=== PATIENT | male | born 1960 | race Caucasian/White ===

== ENCOUNTER → 2018-01-04 | Outpatient (CLI) | payer MEDICARE ==
[~2018-01-04] MED LIST: AMBIEN 10 MG TA10 MG PO; AMLODIPINE BESY10 MG; AMLODIPINE BESY10 MG PO; ANTIBIOTIC IV; CELEBREX; CELEBREX 200 M200 MG PO; CLONIDINE HCL0.2 M2 PO; CLONIDINE PO; CYMBALTA60 MG PO; DILAUDID 2 MG TA2 MG PO; DILAUDID 4 MG TA4 M1 PO; DOXEPIN 10 MG C10 MG; FENTANYL PA25 MCG/HR TP; FINASTERIDE5 MG PO; FLEXERIL PO; FLOMAX PO; FLOMAX0.4 MG PO; GABAPENTIN; HEP-LOCK F100 UNIT/1 IV; IBUPROFEN 800800 M1 PO; IRON325 PO; KEPPRA 500 MG500 M1 PO; LIPITOR 20 MG T20 M1 PO; LISINOPRIL20 MG PO; LOVENOX PO; METHADONE HCL 110 M1; METHADONE HCL 110 M1 PO; MIRTAZAPINE15 M2 PO; MORPHINE PO; MORPHINE SULFAT30 M1 PO; MOVANTIK25 MG PO; MS CONTIN 30 MG30 MG PO; MS CONTIN15 MG PO; NEURONTIN 300300 M1 PO; NEURONTIN600 MG PO; NORCO 5-325 TA1 EACH PO; NORVASC10 MG PO; OPANA ER10 M1 PO; OXYCODONE HCL15 MG PO; PAROXETINE HCL20 MG PO; PAXIL10 MG PO; PERCOCET 10-321 EACH PO; PERCOCET 5-3251 EACH PO; PREDNISONE50 MG PO; PROAIR HFA8.5 GM IH; REMERON SOLTAB45 M1; REMERON15 MG PO; SEROQUEL 50 MG50 MG PO; VOLTAREN GEL 1100 GM TOP; XANAX 0.5 MG0.5 M1 PO; XANAX 0.5 MG0.5 MG PO; ZANAFLEX4 MG; ZANAFLEX4 MG PO; oxycodone PO
--- NOTE | 2018-01-09 07:21 | PAINCON ---
[facility] [address] [place] [address] PAIN MANAGEMENT CONSULTATION Name: CAROL NESBITT [id number] Admission: 01/04/18 Attend Phys: Valeriy Nieves Discharge: Date of : 62 Report #: [id number] THIS REPORT FOR: //name// CC: Gareth Royal HISTORY OF PRESENT ILLNESS: The patient is a 57-year-old gentleman long known to pain clinic, being treated for chronic pain syndrome requiring high risk complex medication management. He is status post both cervical and lumbar decompressive laminectomy with ongoing axial back pain and SI mediated pain. Last visit was on 11/09/2017, we continued the patient on methadone 10 mg t.i.d., hydromorphone 4 mg up to 6 a day for breakthrough pain. The patient was having some pain in the right hand. I referred him to Dr. Emma Kearney for possible surgery in the right hand. He returns to pain clinic today with significant interval health concerns. The patient was seen for prolonged visit, greater than 30 minutes was spent with the patient today. He notes he has had significant swelling and generalized fatigue over the last couple of months. In fact, symptoms have become fairly paramount and has somewhat eclipsed his hand issues and subsequently he did not follow up with Dr. Kearney. He notes having significant swelling in his lower extremities and in fact he has +2 pretibial edema bilaterally. He also has developed a unique scaly erythematous plaque on the lower extremities, the left anterior perry has about a 2 x 3 cm plaque, the right leg has about 1 x 2 cm plaque. Multiple areas of some erythema. States he has significant fatigue and has started sleeping in his office chair. Unfortunately, with this he sleeps with his legs "up" but not anywhere near the level of the heart. I think this may be contributing some to his lower extremity edema. Does have sleep apnea by history, though he states he cannot tolerate the CPAP mask and this is the reason which he sleeps sitting up. He has had a significant workup by his pharmacy general manager physician including lab work panel, which ostensibly would have looked at renal function, no abnormality was found. I would assume that a C-reactive protein and B natriuretic peptide levels would have been drawn, had those been positive they may point to some congestive heart failure. The patient has no specific heart history. Today, the patient notes pain remains problematic with pain impact score being about 35/70. Subjective pain score is 4 on a VAS. PHYSICAL EXAMINATION: Other than the edema and erythema in the lower extremities is relatively unchanged, 6 feet tall, 291-pound gentleman, [place] [address] PAIN MANAGEMENT CONSULTATION Name: CAROL NESBITT Room: [facility] [address] Marcie#: [id number] Admission: 01/04/18 Attend Phys: Valeriy Nieves Discharge: Date of : 62 Report #: [id number] 39.3 kilograms per meter squared, up about 20 pounds from last visit. The patient attributes this mostly to the fluid retention. Blood pressure 148/93, pulse 80, respirations 16. Alert and oriented to person, place and time, judged to be a reasonable historian. Moves with moderate antalgic, diffuse tenderness across the low back. Lower extremity strength is unchanged. The patient has subjective pain in his legs with neurogenic claudication concerns. RECOMMENDATION: Long discussion with the patient today about therapeutic options. I strongly suggest he try sleeping flat in bed, may consider adding a small riser under the headboard, typically 1 or 2 bricks under the headboard side of the bed may cause enough elevation to help with the patient's subjective feeling of "suffocation" and may help reduce some lower extremity edema. Also, just on the off chance that this is related to mast cell release suggests that he try simply ogzb-dwk-dspycel diphenhydramine (Benadryl) 25 mg at bedtime. I did caution the patient about increasing somnolence with this agent. Again, the patient's opiate analgesics may release histamine, but Dilaudid is specifically one of the least impactful agents for histamine release and methadone is fairly nominal as well. We reviewed the fact that opiate medications are being used to provide analgesia adequate to support activities of daily living, not attempting to achieve a specific pain score on the 0-10 Visual Analog Scale. The current opiate medications are providing sufficient analgesia to allow the patient to participate in activities of daily living. The patient is not exhibiting any aberrant behavior suggestive of drug diversion. The patient is not having any adverse reactions to medications. The patient is not suffering from daytime somnolence or mental acuity changes. The patient is managing opiate-induced constipation with appropriate zuee-gll-ujxvedz agents and dietary considerations. The patient was counseled on concern for caution with operating a motor vehicle while using opiate medications. A physical exam was performed and the patient's functional status was evaluated. All patients with back pain were advised against the bed rest greater than 4 days and were advised to return to normal activities. Pain score assessment was noted and the treatment plan was reviewed with the patient. All current medications, both prescribed and OTC were reviewed and reconciled on the electronic medical record. Tobacco screening was accomplished and smoking cessation was advised when indicated. BMI was noted and diet/exercise modification was recommended for all patients following outside normal parameters. I reviewed with the patient today their responsibilities to safeguard prescription medications, reviewed their responsibility to utilize medications only as prescribed by the physician. They are [place] [address] PAIN MANAGEMENT CONSULTATION Name: CAROL NESBITT Virgilio Room: [facility]#: [id number] Admission: 01/04/18 Attend Phys: Valeriy Nieves Discharge: Date of : 62 Report #: [id number] medications only from 1 physician group ( [facility]). They are to use 1 pharmacy and keep the clinic informed if they change pharmacies. Their responsibilities include making followup visits in a timely fashion and to avoid abrupt discontinuation of medication usage. Their responsibilities further include bringing their medications (bottles from the pharmacy with residual pills) to the visit for possible confirmation of pill counts and the patient understands it is their responsibility to submit to random drug screens to ensure both that the medications prescribed are present, and that no other controlled substances are present. All prescriptions provided today were generated electronically. ASSESSMENT: 1. Cervical radiculopathy status post decompressive laminectomy. 2. Axial back pain. 3. SI mediated pain. 4. Complex medication management. 5. Idiopathic lower extremity edema, status post cardiopulmonary workup and electrolyte abnormality work up by his pharmacy general manager physician. RECOMMENDATIONS: As noted above. Follow up with his GP and possible Cardiology if symptoms do not resolve. I will see the patient back in 2 months for reevaluation. Opiate consent to treat contract was reviewed. Narcotic medication unchanged. <ELECTRONICALLY SIGNED> By: Miguel Royal DO 01/09/18 0721 1408 [id number] Royal DO /nt
== END ==
LOC: M.PC 02:49
DX: M54.12 Radiculopathy, cervical region (principal); G89.4 Chronic pain syndrome; R60.0 Localized edema; Z79.899 Other long term (current) drug therapy

== ENCOUNTER → 2018-03-01 | Outpatient (CLI) | payer MEDICARE ==
--- NOTE | 2018-03-06 08:02 | PAINCON ---
[facility] [address] [place] [address] PAIN MANAGEMENT CONSULTATION Name: CAROL NESBITT [facility] [id number] Admission: 03/01/18 Attend Phys: Valeriy Nieves Discharge: Date of : 62 Report #: [id number] THIS REPORT FOR: //name// CC: Gareth Royal DATE OF SERVICE: 03/01/2018 The patient is a very pleasant 57-year-old gentleman typically treated for lumbar radiculopathy status post decompressive laminectomy, status post cervical decompressive laminectomy as well, chronic pain syndrome requiring complex medication management, significant SI mediated pain for the past several years. Last visit 01/04/2018, we continued the patient on baseline medication methadone 10 mg t.i.d. and hydromorphone 4 mg up to 6 a day for breakthrough pain. This is a supratherapeutic load of opiate at 220 mg. We discussed weaning this at length. He was having significant lower extremity edema of an ill-defined etiology at last visit. Returns to pain clinic today. Weight continues to be up. He is at 305 pounds, had a very significant workup with really only C-reactive protein being elevated. He incidentally has significant swelling of the left elbow, like olecranon bursitis clinically apparent here. Notes otherwise current medication is providing sufficient analgesia to participate in activities of daily living. He remains stymied about his ongoing swelling. I suggested we check serum testosterone level. Given his chronic opiate use, I suspect that he has some hypotestosteronism. I will send those results to Dr. Gareth Chiang for management of testosterone supplementation if he is in indeed low on serum testosterone. This may help with some of his weight reduction. PHYSICAL EXAMINATION: Shows 6-foot tall, 302-pound gentleman, BMI is 40.7 kilograms per meter squared. Blood pressure is 158/96, pulse 90, respirations 16. Rises from chair using armrest. Diffuse axial back pain, though gait is generally tandem. Significant ballottable edema in the left olecranon bursa. We reviewed the fact that opiate medications are being used to provide analgesia adequate to support activities of daily living, not attempting to achieve a specific pain score on the 0-10 Visual Analog Scale. The current opiate medications are providing sufficient analgesia to allow the patient to participate in activities of daily living. The patient is not exhibiting any aberrant behavior suggestive of drug diversion. The patient is not having any adverse reactions to medications. The patient is not suffering from daytime somnolence or mental acuity changes. The patient is managing opiate-induced constipation with appropriate myhy-cht-dohzhqa agents and dietary considerations. The patient was counseled on concern for caution with operating a motor vehicle while using opiate medications. A physical exam was performed and the patient's functional status was evaluated. All patients with back pain were advised against the bed rest greater than [address] [place] [address] PAIN MANAGEMENT CONSULTATION Name: CAROL NESBITT [facility] [id number] Admission: 03/01/18 Attend Phys: Valeriy Nieves Discharge: Date of : 62 Report #: [id number] days and were advised to return to normal activities. Pain score assessment was noted and the treatment plan was reviewed with the patient. All current medications, both prescribed and OTC were reviewed and reconciled on the electronic medical record. Tobacco screening was accomplished and smoking cessation was advised when indicated. BMI was noted and diet/exercise modification was recommended for all patients following outside normal parameters. I reviewed with the patient today their responsibilities to safeguard prescription medications, reviewed their responsibility to utilize medications only as prescribed by the physician. They are to seek and receive pain medications only from 1 physician group ( [facility]). They are to use 1 pharmacy and keep the clinic informed if they change pharmacies. Their responsibilities include making followup visits in a timely fashion and to avoid abrupt discontinuation of medication usage. Their responsibilities further include bringing their medications (bottles from the pharmacy with residual pills) to the visit for possible confirmation of pill counts and the patient understands it is their responsibility to submit to random drug screens to ensure both that the medications prescribed are present, and that no other controlled substances are present. All prescriptions provided today were generated electronically. ASSESSMENT: Chronic axial back pain in a gentleman status post both cervical and lumbar decompressive laminectomies, sacroiliac mediated pain requiring complex medication management. RECOMMENDATIONS: We will renew current medication unchanged with a caveat for the patient to try and wean p.r.n. hydromorphone down to 2-3 a day as able. I have enabled him to take up to 6 a day. We will do a pill count in 2 months in followup. ASSESSMENT #2: Left olecranon bursitis. PROCEDURE: Left elbow olecranon bursa drain today. PROCEDURE NOTE: After written informed consent was obtained, area overlying the left elbow was cleansed with ChloraPrep. Skin wheal with Xylocaine was raised. A 20-gauge Angiocath was inserted and 20 mL of a serosanguineous liquid was withdrawn. I injected 2 mL of 0.5% preservative-free bupivacaine plus 20 mg of triamcinolone. Needle was removed, area was cleansed, Band-Aids applied. Told to ice the area today. Follow up in 2 months and present to the ER if he has any signs or symptoms of infection in the left elbow. <ELECTRONICALLY SIGNED> By: Miguel Royal DO 03/06/18 0802 1539 1947[facility] Hospitalmarissa Royal DO /nt
== END | disposition home or self-care (01) ==
LOC: M.PC 00:30
DX: M70.22 Olecranon bursitis, left elbow (principal); G89.4 Chronic pain syndrome; M54.9 Dorsalgia, unspecified; M53.3 Sacrococcygeal disorders, not elsewhere classified; Z98.890 Other specified postprocedural states; Z79.891 Long term (current) use of opiate analgesic; Z79.899 Other long term (current) drug therapy

== ENCOUNTER → 2018-04-26 | Outpatient (CLI) | payer MEDICARE ==
--- NOTE | 2018-04-27 07:13 | PAINCON ---
[address] [address] PAIN MANAGEMENT CONSULTATION Name: CAROL NESBITT [facility] [id number] Admission: 04/26/18 Attend Phys: Valeriy Nieves Discharge: Date of : 62 Report #: [id number] THIS REPORT FOR: //name// CC: Gareth Royal HISTORY OF PRESENT ILLNESS: The patient is a 57-year-old gentleman, typically treated for symptomatic lumbar radiculopathy, status post decompressive laminectomy. He has had a prior cervical decompressive laminectomy and fusion, SI joint pain, requiring complex medication management. Last seen in the pain clinic, 03/01/2018. Continued on baseline narcotic including methadone 10 mg t.i.d. and hydromorphone for breakthrough pain, 4 mg one tablet up to 6 a day. This does represent a supratherapeutic load of opiate, roughly equating to about 240 mg of morphine daily. He came to our clinic in 01/2016, chronic axial back and lumbar radicular pain. At that time, he was taking about 140 mg morphine equivalent; dose has been titrated over time subsequent to multiple surgeries. Last visit, I did check a serum testosterone level. He has been on opiates for quite some time, and he was having trouble with weight loss. He is hovering around 300 pounds; today's weight is 299.4. Serum testosterone level was low, 239 (normal is 264-916). I did refer this lab value to Dr. Chiang for consideration for testosterone supplementation. The patient notes prior caudal injections have helped with lumbar radicular pain, but steroid is associated with diaphoresis at night. Last visit, I did aspirate approximately 20 mL of blood-tinged serosanguineous fluid out of the left elbow. Unfortunately, this recurred within 24 hours. He returns to the pain clinic today noting pain is in the left low back, radiating to the knee. Chronic swelling in the left elbow, though it is nontender. He has episodic left sciatic-type pain. We reviewed the fact that opiate medications are being used to provide analgesia adequate to support activities of daily living, not attempting to achieve a specific pain score on the 0-10 Visual Analog Scale. The current opiate medications are providing sufficient analgesia to allow the patient to participate in activities of daily living. The patient is not exhibiting any aberrant behavior suggestive of drug diversion. The patient is not having any adverse reactions to medications. The patient is not suffering from daytime somnolence or mental acuity changes. The patient is managing opiate-induced constipation with appropriate vyjr-sqc-njnylli agents and dietary considerations. The patient was counseled on concern for caution with operating a motor vehicle while using opiate medications. A physical exam was performed and the patient's functional status was evaluated. All patients with back pain were advised against the bed rest greater than [address] [place] [address] PAIN MANAGEMENT CONSULTATION Name: CAROL NESBITT [facility] [id number] Admission: 04/26/18 Attend Phys: Valeriy Nieves Discharge: Date of : 62 Report #: [id number] days and were advised to return to normal activities. Pain score assessment was noted and the treatment plan was reviewed with the patient. All current medications, both prescribed and OTC were reviewed and reconciled on the electronic medical record. Tobacco screening was accomplished and smoking cessation was advised when indicated. BMI was noted and diet/exercise modification was recommended for all patients following outside normal parameters. I reviewed with the patient today their responsibilities to safeguard prescription medications, reviewed their responsibility to utilize medications only as prescribed by the physician. They are to seek and receive pain medications only from 1 physician group ( [facility]). They are to use 1 pharmacy and keep the clinic informed if they change pharmacies. Their responsibilities include making followup visits in a timely fashion and to avoid abrupt discontinuation of medication usage. Their responsibilities further include bringing their medications (bottles from the pharmacy with residual pills) to the visit for possible confirmation of pill counts and the patient understands it is their responsibility to submit to random drug screens to ensure both that the medications prescribed are present, and that no other controlled substances are present. All prescriptions provided today were generated electronically. PHYSICAL EXAMINATION: VITAL SIGNS: Shows 6 feet tall, 299-pound gentleman, BMI is elevated at 40.7 kilograms per meter squared. Blood pressure 145/94, pulse 85 and respirations 16. Subjective pain score is 8 on a VAS. GENERAL: Alert and oriented to person, place and time, judged to be a reasonable historian. MUSCULOSKELETAL: Upper extremity strength is preserved. Rises from the chair using armrest. Gait is generally tandem, but he has episodic pain in the left leg, which causes him to stop in his tracks. Lower extremity strength is generally preserved. Lumbar range of motion is self-limited. Diffuse tenderness across the low back. No discrete triggers are noted. He does have some ballottable edema in the left olecranon area. ASSESSMENT: Symptomatic lumbar radiculopathy, status post decompressive laminectomy; chronic axial back pain; history of sacroiliac-mediated pain and history of cervical decompressive laminectomy, requiring complex medication management. Does have some ballottable fluid and swelling in the left olecranon bursa. RECOMMENDATIONS: I had a long discussion with the patient today about therapeutic options. He was seen in the pain clinic for approximately 30 minutes today; greater than 50% of the time was spent counseling the patient. I informed the patient that I will be leaving the clinic practice[place] [address] PAIN MANAGEMENT CONSULTATION Name: CAROL NESBITT Room: [facility]#: [id number] Admission: 04/26/18 Attend Phys: Valeriy Nieves Discharge: Date of : 62 Report #: [id number] supratherapeutic load of opiate, which makes his management concerning. I will ask my partner, Dr. Marcell Bernardo, to see if he can continue the patient's care, though we will try and slowly wean his opiate analgesic. Today, we did elect to decrease hydromorphone 4 mg from 6 a day to 5 a day, limit decreased from 181 to 150. This will decrease the opiate load by about 15 mg, down to 215 mEq a day. Continue functional status as able. The patient is very desirous of avoiding any further surgery; he had multiple lumbar and cervical surgeries. I talked about referring him to Orthopedics regarding the olecranon bursa, though given that it is not tender, the patient is loathe to move forward with any further surgeries. I did emphasize that the patient should monitor the elbow swelling as a collection of heme is a very good culture medium and if ANY signs of infection, he should seek medical care. Presently, we would like to simply continue current medication with the caveat that we will try and decrease hydromorphone over time. We will refer to Dr. Chiang regarding testosterone supplementation. Today, I did take the liberty of writing for 3 months of the patient's current opiate analgesic, with the lowered hydromorphone dose. We will have him follow up in [address] Marcell Bernardo. We will likely continue hydromorphone wean as able. Discharged in good and stable condition after prolonged visit. Greater than 30 minutes were spent reviewing therapeutic options, discussing hypotestosteronism, olecranon bursa swelling, surgical risks and benefits and chronic pain management. <ELECTRONICALLY SIGNED> By: Miguel Royal DO 04/27/18 0713 1508 [id number] Royal DO /nt
== END ==
LOC: M.PC 04:02
DX: M54.16 Radiculopathy, lumbar region (principal); M54.5 Low back pain; Z79.899 Other long term (current) drug therapy

== ENCOUNTER 2018-05-03 02:34 | Emergency (ER) | payer MEDICARE ==
[~2018-05-03] VITALS: Ht 182.9 cm; Wt 133.8 kg
[~2018-05-03 02:34] MED LIST changes: -AMLODIPINE BESY10 MG; -ANTIBIOTIC IV; -CLONIDINE HCL0.2 M2 PO; -DOXEPIN 10 MG C10 MG; -FLOMAX0.4 MG PO; -HEP-LOCK F100 UNIT/1 IV; -KEPPRA 500 MG500 M1 PO; -LIPITOR 20 MG T20 M1 PO; -LISINOPRIL20 MG PO; -METHADONE HCL 110 M1; -REMERON SOLTAB45 M1; -SEROQUEL 50 MG50 MG PO; -ZANAFLEX4 MG
[2018-05-03] MEDS ORDERED: PAXIL10 MG PO ×2 (02:59→03:05)
[2018-05-03] MEDS ORDERED: REMERON SOLTAB45 M1 (03:00)
[2018-05-03] MEDS ORDERED: AMLODIPINE BESY10 MG (03:00)
[2018-05-03] MEDS ORDERED: DOXEPIN 10 MG C10 MG (03:01)
[2018-05-03] MEDS ORDERED: ZANAFLEX4 MG (03:01)
[2018-05-03] MEDS ORDERED: DILAUDID 2 MG TA2 MG PO (03:02)
[2018-05-03] MEDS ORDERED: METHADONE HCL 110 M1 (03:03)
[2018-05-03 03:04] LABS: ABSOLUTE BASOPHILS 0.1 thou/uL (0.0-0.2); ABSOLUTE EOSINOPHILS 0.2 thou/uL (0.0-0.7); ABSOLUTE LYMPHOCYTES 2.1 thou/uL (0.8-5.3); ABSOLUTE MONOCYTES 0.6 thou/uL (0.0-1.2); ABSOLUTE NEUTROPHILS 3.7 thou/uL (1.6-8.1); BASOPHILS 0.8 %; EOSINOPHILS 3.6 %; HEMOGLOBIN 14.6 gm/dL (14.0-18.0); LYMPHOCYTES 31.7 %; MCH 30.5 pg (26.0-34.0); MCHC 34.9 g/dL (28.0-37.0); MCV 87.4 fL (80.0-100.0); MONOCYTES 8.7 %; MPV 7.9 fl. (7.2-11.1); NUCLEATED RBCS 0 /100WBC; PLATELET COUNT* 217 thou/uL (150-400); POLYS 55.2 %; RDW-CV 13.5 % (10.5-14.5); WBC 6.7 thou/uL (4.0-11.0)
[2018-05-03 03:05] LABS: POC ANION GAP 18 mmol/L (10-20); POC BUN < 3 mg/dL (8-26); POC CA IONIZED 4.9 mg/dL (4.5-5.3); POC CHLORIDE 102 mmol/L (98-109); POC CREATININE 0.9 mg/dL (0.6-1.3); POC GLUCOSE 129 mg/dL (70-105); POC HEMOGLOBIN 13.9 g/dL (12.0-17.0); POC SODIUM 142 mmol/L (138-146); POC TCO2 27 mmol/L (24-29)
[2018-05-03 03:14] LABS: CALCIUM 8.2 mg/dL (8.5-10.1)
[2018-05-03 03:15] LABS: PROTIME 9.5 Seconds (9.20-11.50)
[2018-05-03 03:19] LABS: ALBUMIN 3.3 g/dL (3.4-5.0); TOTAL BILIRUBIN 0.4 mg/dL (<0.1-1.0); TOTAL PROTEIN 6.5 g/dL (6.4-8.2)
[2018-05-03 04:25] VITALS: BP 158/84
--- NOTE | 2018-05-03 13:10 | EKG ---
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
[2018-07-18] MEDS ORDERED: METHADONE HCL 110 M1 PO ×2 (08:09)
[2018-07-18] MEDS ORDERED: DILAUDID 4 MG TA4 M1 PO (08:09)
[2018-07-18] MEDS ORDERED: ZANAFLEX4 MG PO (08:09)
[2018-07-18] MEDS ORDERED: LIPITOR 20 MG T20 M1 PO (08:32)
[2018-07-18] MEDS ORDERED: KEPPRA 500 MG500 M1 PO (08:33)
[2018-07-18] MEDS ORDERED: CLONIDINE HCL0.2 M2 PO (08:33)
[2018-07-18] MEDS ORDERED: LISINOPRIL20 MG PO (08:34)
[2018-07-18] MEDS ORDERED: FLOMAX0.4 MG PO (08:36)
[2018-07-18] MEDS ORDERED: SEROQUEL 50 MG50 MG PO (08:37)
[2018-10-10] MEDS ORDERED: ZANAFLEX4 MG PO (08:46)
[2018-10-10] MEDS ORDERED: DILAUDID 4 MG TA4 M1 PO (08:46)
[2018-10-10] MEDS ORDERED: METHADONE HCL 110 M1 PO ×2 (08:46)
[2018-10-12] MEDS ORDERED: ANTIBIOTIC IV (16:04)
[2018-10-12] MEDS ORDERED: HEP-LOCK F100 UNIT/1 IV (16:05)
== END 2018-05-03 04:59 | disposition short-term general hospital (02) ==
LOC: M.ERS 02:34
PROVIDERS: Emergency Medicine
DX: I61.9 Nontraumatic intracerebral hemorrhage, unspecified (principal); I10 Essential (primary) hypertension; F17.210 Nicotine dependence, cigarettes, uncomplicated; Z96.651 Presence of right artificial knee joint

== ENCOUNTER → 2018-06-01 | Outpatient (CLI) | payer MEDICARE ==
[~2018-06-01] MED LIST changes: +AMLODIPINE BESY10 MG; +ANTIBIOTIC IV; +CLONIDINE HCL0.2 M2 PO; +DOXEPIN 10 MG C10 MG; +FLOMAX0.4 MG PO; +HEP-LOCK F100 UNIT/1 IV; +KEPPRA 500 MG500 M1 PO; +LIPITOR 20 MG T20 M1 PO; +LISINOPRIL20 MG PO; +METHADONE HCL 110 M1; +REMERON SOLTAB45 M1; +SEROQUEL 50 MG50 MG PO; +ZANAFLEX4 MG
== END ==
LOC: M.RAD 12:11
DX: I10 Essential (primary) hypertension (principal); R06.02 Shortness of breath

== ENCOUNTER → 2018-07-18 | Outpatient (CLI) | payer MEDICARE ==
--- NOTE | 2018-07-26 16:41 | PAINCON ---
[address] [address] PAIN MANAGEMENT CONSULTATION Name: DELICIACAROL [id number] Admission: 07/18/18 Attend Phys: Imelda Bernardo MD Discharge: Date of : 62 Report #: [id number] THIS REPORT FOR: //name// CC: Gareth Bernardo DATE OF SERVICE: 07/18/2018 FOLLOWUP HISTORY: The patient is a 57-year-old gentleman who has been followed in the pain clinic because of chronic pain with history of lumbar fusions as well as cervical problems. He has been followed by Dr. Royal. This is my first time meeting with the gentleman. He returns today indicating that his pain continues to be helped with his current medications of methadone, hydromorphone and they continue to add benefit. He unfortunately had a hemorrhagic bleed on the right side of his brain in April. Since that time, he has noted some problems with short-term memory. He is returning to baseline. Still has some short term memory loss. His fine motor skills continue to improve. His is with him and states that things are going reasonably well from a motor skills vantage point. He rates his pain as a 3-4. He continues with his rehabilitation regarding the stroke. His states that she monitors his opioid use. Overall, things are going reasonably well and the patient is scheduled in the near future to have the cranial flap/bone replaced in the near future. He notes that his pain is exacerbated with activity, walking, sitting, standing, going upstairs, going from a standing to a sitting as well as a bending position. He stopped smoking cigarettes on 05/03/2018. Noticed that his presentation was that of feeling as though a helicopter was overhead. Then noted some severe pain. He was taken to the hospital and diagnosed with a stroke. He underwent craniotomy procedure. Things are going reasonably well at this juncture. ALLERGIES: No known drug allergies. MEDICATIONS: Amlodipine 10 mg, Lipitor 20 mg, clonidine 0.2 mg, doxepin 10 mg, Dilaudid 4 mg q.4 hours, Keppra 500 mg b.i.d., lisinopril 20 mg, methadone 10 mg, Remeron 45 mg, Paxil 10 mg, Seroquel 50 mg, Flomax 0.4 mg, tizanidine 4 mg 1-2 p.r.n. spasm. PAST MEDICAL HISTORY: Recent hemorrhagic stroke. PAST SURGICAL HISTORY: In 2007, bilateral spinal fusion. In 2009, knee replacement, laminectomy. SOCIAL HISTORY: He is retired on social security benefits and has been for a number of years, has a 14-lsep-pqud [place] [address] PAIN MANAGEMENT CONSULTATION Name: CAROL NESBITT Virgilio Room: [facility]#: [id number] Admission: 07/18/18 Attend Phys: Imelda Bernardo MD Discharge: Date of : 62 Report #: [id number] REVIEW OF SYSTEMS: Questionnaire in the chart indicates, fever, night sweats, fatigue, headaches, memory loss, confusion, nervousness and insomnia. LABORATORY DATA: No new laboratory values are available at the time of our interview. PAIN CLINIC ASSESSMENT: 1. Osteoarthritis. The patient has some right knee arthritic changes as well as some low back changes. 2. Height 6 feet 0 inches, weight 282 pounds, BMI is 38. 3. Vital Signs: Blood pressure 148/75, respiratory rate 16, room air saturation 95%, heart rate 91, temperature 98.3. 4. Pain intensity 3-/10. 5. Fall risk. The patient has not fallen in the last 3 months. 6. Blood thinner. The patient is not on a blood thinning medication. 7. Hypertension. The patient is being treated for hypertension. 8. Opioid therapy greater than 6 weeks. The patient gets his medications from one source, the pain clinic. 9. Risk assessment tool. 10. Functional assessment tool. 11. Recreational drug use. The patient denies use of recreational drugs. 12. Tobacco: The patient stopped smoking in 05/03/2018, has a 70-ieew-bmjf history. 13. Alcohol: Denies use of alcoholic beverages. PHYSICAL EXAMINATION: GENERAL: The patient is a well-developed, well-nourished white male. Appears as stated age. He is alert and oriented x 3. HEENT: Right side of his skull has been removed secondary to hemorrhagic stroke. Eyes are equal, round, and reactive. The patient states there is a difference in visual acuity in the left thigh. States that things appear that they are quite a distance away that is improving. Hearing within normal limits. Mucous membranes are moist. NECK: Without adenopathy or JVD. LUNGS: Clear to auscultation without rales or rhonchi. ABDOMEN: Nontender, slightly protuberant. The patient without significant scoliosis, kyphosis or lordosis. Has low back pain with radiation down in the L5 distribution. The patient has had lumbar laminectomy fusions. IMPRESSION: 1. Status post recent hemorrhagic stroke with reasonably good resolution at this juncture. 2. Asymptomatic lumbar radiculopathy, status post decompression, laminectomy in 2007 and 1989. 3. Sacroiliac joint dysfunction. 4. Chronic pain syndrome. [facility] [address] [place] [address] PAIN MANAGEMENT CONSULTATION Name: DELICIACAROL Room: [facility]#: [id number] Admission: 07/18/18 Attend Phys: Imelda Bernardo MD Discharge: Date of : 62 Report #: [id number] 5. Hypertension. 6. Chronic insomnia. 7. Chronic anxiety/depression, status post knee arthroplasty in 2009, bilateral spinal fusion, 2007. RECOMMENDATIONS: We discussed treatment options with the patient and his . Things are going reasonably well. He feels quite fortunate that things have turned down as well as they given that he had the hemorrhagic bleed. He is scheduled in the next week or so to go and have the cranium replaced. His states that he takes care of his medications. He is doing relatively well and he would like to continue with current medical regimen. They will follow up in the near future. We would like to thank you for letting us participate in his care. We hope to stay continue to improve. <ELECTRONICALLY SIGNED> By: Imelda Bernardo MD 07/26/18 1641 [id number]. Marcell Bernardo MD /PMT
== END ==
LOC: M.PC 04:43
DX: M54.16 Radiculopathy, lumbar region (principal); I10 Essential (primary) hypertension; M53.3 Sacrococcygeal disorders, not elsewhere classified; G89.4 Chronic pain syndrome; F51.04 Psychophysiologic insomnia; F41.9 Anxiety disorder, unspecified; F32.9 Major depressive disorder, single episode, unspecified

== ENCOUNTER → 2018-10-10 | Outpatient (CLI) | payer MEDICARE ==
--- NOTE | 2018-10-11 15:35 | PAINCON ---
[address] [address] PAIN MANAGEMENT CONSULTATION Name: CAROL NESBITT Room: [facility]#: [id number] Admission: 10/10/18 Attend Phys: Imelda Bernardo MD Discharge: Date of : 62 Report #: [id number] THIS REPORT FOR: //name// CC: Gareth Bernardo DATE OF SERVICE: 10/10/2018 FOLLOWUP HISTORY: The patient is a 57-year-old gentleman, who has been followed in the pain clinic. As you recall, he has a history of lumbar fusions as well as cervical problems. The patient has been followed in the pain clinic and receives medications. He finds that the methadone and hydromorphone continue to be beneficial. As you recall, he has had a hemorrhagic bleed on the right side of his brain in 04/2018. Since that time, he has had some problem with short-term memory. He is beginning and continues to return to baseline. He was hoping for surgery to replace the portion of the skull, which was removed. At this juncture, he has had some problems with an infection. This will prolong the time before they were able to continue and close the cranial flap and replaced the bone. He overall is doing reasonably well. He stopped smoking cigarettes. He continues to have pain, which is helped by use of his current medical regimen. The patient does have a PICC line in place for antibiotics. He will have a synthetic skull replacement in 11/2018. He does continue to feel somewhat depressed because of this turn of events. CURRENT MEDICATIONS: The patient is on amlodipine 10 mg, Lipitor 20 mg, clonidine 0.2 mg, doxepin 10 mg, Dilaudid 4 mg q.4 hours, Keppra 500 mg b.i.d., lisinopril 20 mg, methadone 10 mg, Remeron 45 mg, Paxil 10 mg, Seroquel 50 mg, Flomax 0.4 mg, and tizanidine 4 mg 1-2 p.r.n. spasm. ALLERGIES: No known drug allergies. PAIN CLINIC ASSESSMENT AND PQRS: 1. Osteoarthritis. The patient has some right knee arthritic changes as well as some low back changes. The patient is not being treated for rheumatoid arthritis. 2. Pain intensity is 5/10. 3. Fall history: The patient has not fallen in the last 3 months. 4. Blood thinner. The patient is not on a blood thinning medication. 5. Hypertension. The patient is not being treated for hypertension. 6. Opiate therapy greater than 6 weeks. The patient has received medication from one source, the pain clinic. 7. Risk assessment tool, low for opioid use. 8. Functional assessment tool. 9. Recreational drug use. The patient denies use of recreational drugs. 10. Tobacco: The patient stopped smoking in 04/2018, had a 66-pnap-qfmv [place] [address] PAIN MANAGEMENT CONSULTATION Name: CAROL NESBITT Room: [facility]#: [id number] Admission: 10/10/18 Attend Phys: Imelda Bernardo MD Discharge: Date of : 62 Report #: [id number] 11. Alcohol: The patient denies use of alcoholic beverages. PHYSICAL EXAMINATION: GENERAL: The patient is a well-developed, well-nourished white male. He appears his stated age. He is alert and oriented x 3. Height is 6 feet 0 inches, weight is 274 pounds, and BMI is 37.4. VITAL SIGNS: Blood pressure is 133/71, heart rate is 81, respiratory rate is 16, room air saturation is 97%, and temperature is 97.9. HEENT: The right side of his skull has been removed secondary to hemorrhagic stroke. Eyes are equal, reactive, and round. The patient states that there is some difference in his visual acuity on the left side. He feels that the vision continues to improve. Hearing is within normal limits. Mucous membranes are moist. NECK: Without adenopathy or JVD. LUNGS: Clear to auscultation without rhonchi or rales. ABDOMEN: Nontender, slightly protuberant. MUSCULOSKELETAL: The patient without scoliosis, kyphosis, or lordosis. He has low back pain that radiates down into the L5 distribution. He has had lumbar laminectomy and fusions. IMPRESSION: 1. Status post hemorrhagic stroke with reasonably good resolution at this juncture. The patient now with Staphylococcus infection on the right side of his head. 2. Asymmetric lumbar radiculopathy, status post decompressive laminectomy in 2007 and 1989. 3. Sacroiliac joint dysfunction. 4. Chronic pain. 5. Hypertension. 6. Chronic insomnia. 7. Chronic anxiety/depression, status post knee arthroplasty in 2009, bilateral spinal fusion in 2007. RECOMMENDATIONS: We have discussed treatment options with the patient. At this juncture, we will continue with his medications. He finds that these medications continue to be helpful. We will continue with his methadone 10 mg 1 p.o. 2-3 tablets daily, Dilaudid 4 mg q.4-6 hours p.r.n., approximately 5 tablets per day; tizanidine 4 mg 1-2 tablets t.i.d. p.r.n. h.s., and Tylenol p.r.n. A script for these medications have been written. The patient will follow up in the future as needed. We would like to thank you for letting us to participate in [place] [address] PAIN MANAGEMENT CONSULTATION Name: DELICIACAROL Room: [facility]#: [id number] Admission: 10/10/18 Attend Phys: Imelda Bernardo MD Discharge: Date of : 62 Report #: [id number] he continues to improve. Hopefully, his infection will subside and he can move quickly to surgical placement and closure of his craniotomy. <ELECTRONICALLY SIGNED> By: Imelda Bernardo MD 10/11/18 1535 [id number]. Marcell Bernardo MD /BENJIE
== END ==
LOC: M.PC 04:35
DX: M54.16 Radiculopathy, lumbar region (principal); M53.3 Sacrococcygeal disorders, not elsewhere classified; I10 Essential (primary) hypertension; G89.29 Other chronic pain; F51.04 Psychophysiologic insomnia; M96.1 Postlaminectomy syndrome, not elsewhere classified; I61.9 Nontraumatic intracerebral hemorrhage, unspecified; B95.8 Unspecified staphylococcus as the cause of diseases classified elsewhere; F32.9 Major depressive disorder, single episode, unspecified; F41.9 Anxiety disorder, unspecified

== ENCOUNTER → 2019-01-02 | Outpatient (CLI) | payer MEDICARE ==
--- NOTE | ~2019-01-02 | PAINCON ---
[address] [address] PAIN MANAGEMENT CONSULTATION Name: CAROL NESBITT Room: [facility]#: [id number] Admission: 01/02/19 Attend Phys: Imelda Bernardo MD Discharge: Date of : 62 Report #: [id number] THIS REPORT FOR: //name// CC: Gareth Bernardo DATE OF SERVICE: 01/02/2019 FOLLOWUP HISTORY: The patient is a 57-year-old gentleman who has been followed in the Pain Clinic. As you know, he has a history of lumbar fusions. He also has some cervical problems. He finds that his medications continue to be helpful. He has returned today for renewal of the medications. He had a hemorrhagic bleed in 04/2018. As a result, a surgical intervention was required. The right side of the skull was removed. He recently had a prosthetic portion of the skull replaced. This was about 9 days ago. He feels that things are improving. He rates his pain as a 4/10. He notes that he notes increased pain and discomfort if he sits for too long. He does feel depressed. He has resumed chewing and smoking tobacco. He has a 38-vebv-zsio history. His has encouraged him to refrain from this. Overall, he feels that things have gone reasonably well since the replacement of the cranial flap. He has returned today for renewal of his medications. CURRENT MEDICATIONS: Amlodipine 10 mg, Lipitor 20 mg, clonidine 0.2 mg, doxepin 10 mg, Dilaudid 4 mg q. 4 hours, Keppra 500 mg b.i.d., lisinopril 20 mg, methadone 10 mg, Remeron 45 mg, Paxil 10 mg, Seroquel 50 mg, Flomax 0.4 mg, tizanidine 4 mg one to two p.r.n. spasm. ALLERGIES: No known drug allergies. PAIN CLINIC ASSESSMENT/PQRS: 1. Osteoarthritis. The patient has some right knee arthritic changes as well as some low back pains. He is not being treated for rheumatoid arthritis. 2. Height 6 feet, weight 264 pounds, BMI is 35.9. 3. Vital signs: Blood pressure 142/72, heart rate 94, respiratory rate 16, room air saturation 96%, temperature 98.2. 4. Pain intensity: 4/10. 5. Fall risk: The patient has not fallen in the last 3 months. 6. Blood thinner: The patient is not on a blood thinning medication. 7. Hypertension: The patient is being treated for hypertension. 8. Opioids greater than 6 weeks: The patient is receiving his medication from [facility], [facility] Clinic. 9. Risk assessment tool: Low for opioid use. 10. Functional assessment tool. 11. Recreational drug use: The patient denies use of recreational drug use. 12. Tobacco: The patient is chewing tobacco and has resumed smoking less than a pack of cigarettes per day. He has a 24-mqpx-igew history[place] [address] PAIN MANAGEMENT CONSULTATION Name: CAROL NESBITT Room: [facility]#: [id number] Admission: 01/02/19 Attend Phys: Imelda Bernardo MD Discharge: Date of : 62 Report #: [id number] the patient the benefits of smoking cessation. I explained to him that each time he smokes cigarettes, this decreases his healing capacity and prolongs his healing. The patient is aware. 13. Alcohol: The patient denies use of alcoholic use. PHYSICAL EXAMINATION: GENERAL: The patient is a well-developed, well-nourished white male. He appears his stated age. He is alert and oriented x 3. His affect is appropriate. Speech is fluent. HEENT: Normocephalic. The patient has a bone flap placed on the right side with stitching and sutures in the right parietal and skull area. The patient has some visual loss in the left eye in the lateral visual area. Hearing is within normal limits. Mucous membranes are moist. NECK: Without adenopathy or JVD. LUNGS: Clear to auscultation. ABDOMEN: Nontender. Protuberant. MUSCULOSKELETAL: Without scoliosis, kyphosis, or lordosis. The patient does walk with a slightly antalgic gait. He has a history of lumbar laminectomies and fusion. ASSESSMENT: 1. Status post cranial flap replacement about a week ago. 2. Asymptomatic lumbar radiculopathy status post decompression laminectomy in 2007 and 1998. 3. Sacroiliac joint dysfunction. 4. Chronic pain. 5. Hypertension. 6. Chronic insomnia. 7. Chronic anxiety/depression. 8. Status post knee arthroscopy in 2009, bilateral spinal fusion in 2007. RECOMMENDATIONS: We discussed treatment options with the patient. At this juncture, we will continue with his current medications. We have discussed the benefits and risks of opioid use. The patient feels that his medications are helpful. I explained to him that cessation of smoking would be quite beneficial at this juncture. His is somewhat disenchanted with his desire and use of tobacco at this juncture. A script for his medications of hydromorphone 1 q. 6 hours 150 tablets has been written, methadone 10 mg one p.o. t.i.d. has been provided as well. He will call us if he has any concerns. We would like to thank you for letting us participate in his care. We hope he continues to improve. By: [id number]. Marcell Bernardo MD /nt
== END ==
LOC: M.PC 08:10
DX: I10 Essential (primary) hypertension (principal); G89.29 Other chronic pain; F32.9 Major depressive disorder, single episode, unspecified; F41.9 Anxiety disorder, unspecified; M43.20 Fusion of spine, site unspecified; M54.16 Radiculopathy, lumbar region; M95.2 Other acquired deformity of head; M53.3 Sacrococcygeal disorders, not elsewhere classified

== ENCOUNTER → 2019-03-27 | Outpatient (CLI) | payer MEDICARE ==
--- NOTE | ~2019-03-27 | PAINCON ---
[address] [address] PAIN MANAGEMENT CONSULTATION Name: DELICIACAROL Room: [facility]#: [id number] Admission: 03/27/19 Attend Phys: Imelda Bernardo MD Discharge: Date of : 62 Report #: [id number] THIS REPORT FOR: //name// CC: Gareth Bernardo DATE OF SERVICE: 03/27/2019 CHIEF COMPLAINT: Here for medications. HISTORY: The patient is a 58-year-old gentleman who has been followed in the pain clinic. As you recall, he suffered a stroke. For some period of time, he did have an unprotected cranium. He has had a placement and surgery to close his cranium. Overall, things are going reasonably well. 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 This has been problematic since the stroke. Also, continues to know some pain and discomfort. 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 States that he must have pulled the starter about 20-30 times. That caused some worsening of his pain and discomfort. He is no longer taking tizanidine medication. He feels that the methadone and hydrocodone continue to be helpful. He would like to have his medications renewed. He stopped smoking for a while. States that he does smoke a bit at this point. Still feel somewhat depressed because of the situation. CURRENT MEDICATIONS: Amlodipine 10 mg, Lipitor 20 mg, clonidine 0.2 mg, doxepin 10 mg, Dilaudid 4 mg every 4 hours, Keppra 500 mg b.i.d., lisinopril 20 mg, methadone 10 mg, Remeron 45 mg, Paxil 10 mg, Seroquel 50 mg, Flomax 0.4 mg. The patient has stopped taking tizanidine. ALLERGIES: No known drug allergies. PAIN CLINIC ASSESSMENT/PQRS: 1. The patient has some right knee arthritic changes as well as has some back changes. He has undergone a knee replacement on the right. He has not been treated for rheumatoid arthritis. 2. Pain intensity 05/07. 3. Fall history. The patient has not fallen in the last 3 months. 4. Blood thinner. The patient is not on a blood thinning medication. 5. Hypertension. The patient is being treated for hypertension. 6. Opioid greater than 6 weeks. The patient [facility]. 7. Risk assessment tool, low for opioid use. 8. Functional assessment tool. 9. Recreational drug use. The patient denies. 10. Tobacco: The patient does smoke cigarettes. 11. Alcohol: The patient denies [place] [address] PAIN MANAGEMENT CONSULTATION Name: CAROL NESBITT Room: [facility]#: [id number] Admission: 03/27/19 Attend Phys: Imelda Bernardo MD Discharge: Date of : 62 Report #: [id number] PHYSICAL EXAMINATION: GENERAL: The patient is a well-developed, well-nourished white male. Appears his stated age. He is alert, oriented x 3. His affect is appropriate. Speech is fluent. HEENT: Normocephalic, atraumatic. Extraocular eye muscles intact. The patient has had his right skull area closed. Eyes appear equal, reactive and round. Has loss of visual acuity on the left side. NECK: Without adenopathy or JVD. LUNGS: Clear to auscultation without rhonchi or rales. ABDOMEN: Nontender, slightly protuberant. MUSCULOSKELETAL: Without significant scoliosis, kyphosis or lordosis. Upper extremity muscle strength is judged to be 5-/5 for the major muscle groups in the upper extremity. The patient has lower extremity muscle strength is judged to be 5-/5 for the lower extremity, does walk with a slight limp. IMPRESSION: 1. Status post hemorrhagic stroke with reasonably good resolution at this juncture. 2. Asymmetric lumbar radiculopathy status post decompressive laminectomy in 2007 and 1989. 3. Sacroiliac joint dysfunction. 4. Chronic pain. 5. Hypertension. 6. Chronic insomnia. 7. Chronic Anxiety/depression. 8. Status post knee arthroplasty in 2009, bilateral spinal fusion in 2007. RECOMMENDATIONS: We discussed treatment options with the patient. At this juncture, he will continue with his medications. He does not feel that he needs to continue with the tizanidine medication. He feels that his other medications of methadone 10 mg 1 p.o. t.i.d. and Dilaudid 4 mg one p.o. every 4 hours continues to be helpful. He will continue with the medications. A script has been written. He will call us if he has any concerns. We would like to thank you for letting us participate in his care. We hope he continues to improve. By: [id number]. Marcell Bernardo MD /sheri
== END ==
LOC: M.PC 02-27 08:10
DX: G89.29 Other chronic pain (principal); I63.9 Cerebral infarction, unspecified; I10 Essential (primary) hypertension; F17.210 Nicotine dependence, cigarettes, uncomplicated; F51.04 Psychophysiologic insomnia; Z79.899 Other long term (current) drug therapy; Z79.891 Long term (current) use of opiate analgesic

== ENCOUNTER → 2019-05-28 | Outpatient (CLI) | payer MEDICARE ==
[2019-05-28 15:47] LABS: ABSOLUTE BASOPHILS 0.1 thou/uL (0.0-0.2); ABSOLUTE EOSINOPHILS 0.3 thou/uL (0.0-0.7); ABSOLUTE MONOCYTES 0.7 thou/uL (0.0-1.2); ABSOLUTE NEUTROPHILS 4.8 thou/uL (1.6-8.1); BASOPHILS 1.3 %; EOSINOPHILS 3.3 %; HEMATOCRIT 40.8 % (42.0-52.0); HEMOGLOBIN 13.6 gm/dL (14.0-18.0); LYMPHOCYTES 33.8 %; MCH 27.9 pg (26.0-34.0); MCHC 33.4 g/dL (28.0-37.0); MCV 83.5 fL (80.0-100.0); MPV 7.8 fl. (7.2-11.1); NUCLEATED RBCS 0 /100WBC; PLATELET COUNT* 299 thou/uL (150-400); POLYS 53.6 %; RBC 4.88 mil/uL (4.50-6.00); RDW-CV 16.1 % (10.5-14.5); WBC 8.9 thou/uL (4.0-11.0)
[2019-05-28 16:09] LABS: CALCIUM 8.8 mg/dL (8.5-10.1); CREATININE 0.9 mg/dL (0.6-1.3); POTASSIUM 4.2 mmol/L (3.5-5.1)
[2019-05-28 16:14] LABS: ALBUMIN 3.6 g/dL (3.4-5.0); TOTAL BILIRUBIN 0.3 mg/dL (<0.1-1.0); TOTAL PROTEIN 7.5 g/dL (6.4-8.2)
== END ==
LOC: M.LAB 15:13
PROVIDERS: Internal Medicine
DX: R05 Cough (principal); R06.02 Shortness of breath

== ENCOUNTER → 2019-06-19 | Outpatient (CLI) | payer MEDICARE ==
--- NOTE | ~2019-06-19 | PAINCON ---
[address] [address] PAIN MANAGEMENT CONSULTATION Name: CAROL NESBITT Room: [facility]#: [id number] Admission: 06/19/19 Attend Phys: Imelda Bernardo MD Discharge: Date of : 62 Report #: [id number] THIS REPORT FOR: //name// CC: Gareth Bernardo DATE OF SERVICE: 06/19/2019 CHIEF COMPLAINT: "Here for medication renewal, still seeing double." HISTORY: The patient is a 58-year-old gentleman who has been followed in the pain clinic. As you recall, he suffered a right hemispheric stroke. Since that time, he has had some problems with his vision. Notes some double vision. He was walking through a convenience store. Because of the loss of his peripheral vision. He was unable to see a shelf that was somewhat protruding there, did fall, but did not hurt himself. Notes that his pain continues to be helped with his current medical regimen of methadone and feels that the hydromorphone is beneficial as well. He was taking tizanidine. He stopped this for a while. After stopping the tizanidine. He did note that he has had more problems with sleeping. He feels that he would like to restart this because it helps him relax a bit more particularly at nighttime, so his mind is not as active. He does feel some frustration with his new change of life. He does have the double vision. He is unable to drive because it is not safe. Overall, he feels like he is dealing with things as best he can. CURRENT MEDICATIONS: Amlodipine 10 mg, Lipitor 20 mg, clonidine 0.2 mg, doxepin 10 mg, Dilaudid 4 mg q.4 hours, Keppra 500 mg b.i.d., lisinopril 20 mg, methadone 10 mg, Remeron 45 mg, Paxil 10 mg, Seroquel 50 mg, Flomax 0.4 mg. The patient would like to restart tizanidine. ALLERGIES: No known drug allergies. PAIN CLINIC ASSESSMENT/PQRS: 1. The patient has some right knee pain as well as back pain. He has undergone knee replacement on the right. He is not being treated for rheumatoid arthritis. 2. Height 6 feet 0, weight 285 pounds, BMI is 38. 3. Vital signs: Blood pressure 112/60, heart rate 88, respiratory rate 16, room air saturation 98%, temperature 98.4. 4. Pain intensity 4/10. 5. Fall history: The patient did stumble in a store, but did not injure himself. 6. Blood thinner. The patient is not on a blood thinning medication. 7. Hypertension. The patient is being treated for hypertension. 8. Opioids greater than 6 weeks. The [place] [address] PAIN MANAGEMENT CONSULTATION Name: CAROL NESBITT Room: [facility]#: [id number] Admission: 06/19/19 Attend Phys: Imelda Bernardo MD Discharge: Date of : 62 Report #: [id number] source the pain clinic. 9. Risk assessment tool, low for opioid use. 10. Functional assessment tool. 11. Recreational drug use. The patient denies use of recreational drugs. 12. Tobacco: The patient does smoke cigarettes. We discussed the benefits of smoking cessation. 13. Alcohol: The patient denies use of alcoholic beverages. PHYSICAL EXAMINATION: GENERAL: The patient is a well-developed, well-nourished white male. Appears his stated age. He is alert and oriented x 3. His affect is appropriate. Speech is fluent. HEENT: Normocephalic, atraumatic. Extraocular eye muscles intact. Sclerae nonicteric. 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 He complains of diplopia. Has loss of acuity on the left side. NECK: Without adenopathy or JVD. LUNGS: Clear to auscultation without rales or rhonchi. ABDOMEN: Nontender, slightly protuberant. EXTREMITIES: Upper extremity muscle strength judged to be 5/5 for the major muscle groups in the upper extremity. The patient without significant scoliosis, lordosis or kyphosis. Gait is generally normal. Has a slight limp. Lower extremity muscle strength 5/5. IMPRESSION: 1. Status post right hemispheric stroke with good resolution at this juncture. 2. Asymmetric lumbar radicular pain status post decompressive lumbar laminectomy in 2007 and 1989. 3. Sacroiliac joint dysfunction. 4. Chronic pain. 5. Hypertension. 6. Chronic insomnia. 7. Chronic anxiety/depression. 8. Status post right knee arthroplasty in 2009, bilateral spinal fusion, 2007. RECOMMENDATIONS: We discussed treatment options with the patient. At this juncture, we will continue with his medications. He feels the medications are helpful. He is aware that opioid medications for some folks have been problematic. He feels medications are working reasonably well. He is aware that there are limitations to the opioid medication. He realizes that increasing opioid dosages may not provide significant benefit. He is aware that chronic use of opioid medications may become less effective secondary to tolerance. He would like to continue with his medications. He is able to engage in do more things with them. He feels that he is more alert at night. He would like to resume the tizanidine. Since he stopped tizanidine. He notes that he is more awake at night and has finds it more difficult to fall asleep. We will renew his tizanidine with 4 mg 1 p.o. t.i.d. He will keep his [facility] [address] [place] [address] PAIN MANAGEMENT CONSULTATION Name: CAROL NESBITT Room: [facility]#: [id number] Admission: 06/19/19 Attend Phys: Imelda Bernardo MD Discharge: Date of : 62 Report #: [id number] medications in a guarded area. He will call us if he has any concerns. We would like to thank you for letting us participate in his care. We have discussed the benefits of smoking cessation. By: [id number]. Marcell Bernardo MD /BENJIE
== END ==
LOC: M.PC 05:19
DX: Z76.0 Encounter for issue of repeat prescription (principal); I10 Essential (primary) hypertension; I69.351 Hemiplegia and hemiparesis following cerebral infarction affecting right dominant side; G89.29 Other chronic pain; F41.9 Anxiety disorder, unspecified; F32.9 Major depressive disorder, single episode, unspecified; Z79.899 Other long term (current) drug therapy; Z79.891 Long term (current) use of opiate analgesic; Z98.1 Arthrodesis status; Z96.651 Presence of right artificial knee joint

== ENCOUNTER → 2019-09-11 | Outpatient (CLI) | payer MEDICARE ==
--- NOTE | 2019-09-19 09:09 | PAINCON ---
[address] [address] PAIN MANAGEMENT CONSULTATION Name: CAROL NESBITT Virgilio Room: [facility].#: [id number] Admission: 09/11/19 Attend Phys: Imelda Bernardo MD Discharge: Date of : 62 Report #: [id number] THIS REPORT FOR: //name// CC: Gareth Bernardo DATE OF SERVICE: 09/11/2019 PRIMARY CARE PHYSICIAN: Gareth Chiang MD CHIEF COMPLAINT: Here for medication renewal. HISTORY OF PRESENT ILLNESS: The patient is a 58-year-old gentleman, who has been followed in the pain clinic. Continues to have effects from his right hemispheric stroke. He continues to have problems with his vision. Sees double. His left eye is the most problematic. His medications are working relatively well. He rates his pain as a 4/10. 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 He is not sure that he would glean much of an advantage with use of marijuana. He feels overall that the medication regimen that he is on is working relatively well and he would like to stick with it. He has not sought medical treatment from an mobile pet groomer regarding his double vision. Overall, he just feels tired of visiting with medical equipment repairer. Feels like he will just continue to live his life at the level that it is. Continues to see a psychiatrist about every 6 months. Does continue to have frustrations with this change in life. 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 He still feels he is dealing with things as best he can. CURRENT MEDICATIONS: Amlodipine 10 mg, Lipitor 20 mg, clonidine 0.2 mg, doxepin 10 mg, Dilaudid 4 mg q. 4 hours, Keppra 500 mg b.i.d., lisinopril 20 mg, methadone 10 mg, Remeron 45 mg, Paxil 10 mg, Seroquel 50 mg, Flomax 0.4 mg. The patient uses tizanidine p.r.n. ALLERGIES: No known drug allergies. PAIN CLINIC ASSESSMENT AND PQRS: 1. The patient has some osteoarthritic changes involving his right knee. He has had back pain. He has undergone right knee replacement. He is not being treated for rheumatoid arthritis. 2. Height 6 feet, 0 inch. Weight 286 pounds. BMI is 39. 3. Vital signs: Blood pressure 150/83, heart rate 83, respiratory rate 16, room air saturation is 94%, temperature 98.1. 4. Pain score 4/10. 5. Fall history: The patient has not fallen in the last 3 months. 6. Blood thinner. The patient is not on a blood thinning medication. 7. Hypertension. The patient is being [place] [address] PAIN MANAGEMENT CONSULTATION Name: CAROL NESBITT Virgilio Room: [facility]#: [id number] Admission: 09/11/19 Attend Phys: Imelda Bernardo MD Discharge: Date of : 62 Report #: [id number] 8. Opioids greater than 6 weeks. The patient receives the medication from [facility]. 9. Risk assessment tool: Low for opioid use. 10. Functional assessment tool. 11. Recreational drug use: The patient denies. 12. Tobacco: The patient does smoke cigarettes. The patient is not vaping with nicotine. 13. Alcohol: The patient denies use of alcoholic beverages. PHYSICAL EXAMINATION: GENERAL: The patient is a well-developed, well-nourished white male, appeared to be his stated age. He is alert and oriented x 3. His affect is somewhat down. Speech is fluent. He is accompanied by his . HEENT: Normocephalic, atraumatic. Extraocular eye muscles intact. Sclerae nonicteric. The patient has closure of the right side of his skull. Still complains of diplopia. Has loss of his visual acuity on the left side. NECK: Without adenopathy or JVD. LUNGS: Clear to auscultation without rhonchi or rales. ABDOMEN: Nontender, slightly protuberant. EXTREMITIES: Upper extremity muscle strength judged to be 5/5 for the major muscle groups in the upper extremities. The patient without significant scoliosis, kyphosis, or lordosis. Gait is generally normal. Has a slight limp. Lower extremity muscle strength 5/5 for the major muscle groups in the lower extremities. IMPRESSION: 1. Status post right hemispheric stroke with good resolution at this juncture. 2. History of asymmetric lumbar radicular pain status post decompressive lumbar laminectomy in 2007 and 2008 and 1989. 3. Sacroiliac joint dysfunction. 4. Chronic pain. 5. Hypertension. 6. Chronic insomnia. 7. Chronic anxiety/depression. 8. Status post right knee arthroplasty, 2009/bilateral spinal fusion, 2007. RECOMMENDATIONS: We discussed treatment options with the patient. At this juncture, we will continue with his medications. He feels that the medications overall are doing reasonably well. He would like to have his medications renewed. 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 He has problems with his vision still. He is not interested in seeing a physician in this regard. He is somewhat tired of dealing with the medical community. We will renew his medications. A script for his medications has been rewritten. He will continue with tizanidine 4 mg 1 p.o. up to t.i.d., hydromorphone/Dilaudid 4 mg 1 p.o. 5 times daily, methadone 10 mg 1 p.o. t.i.d. He will call us if he has any concerns. We will continue [place] [address] PAIN MANAGEMENT CONSULTATION Name: CAROL NESBITT Room: [facility]#: [id number] Admission: 09/11/19 Attend Phys: Imelda Bernardo MD Discharge: Date of : 62 Report #: [id number] patient's pain control using the complex medication management. At this juncture, the patient has thought about the possibility of medical marijuana. He is not interested at this juncture. We would like to thank you for letting us participate in his care. We hope he continues to improve. <ELECTRONICALLY SIGNED> By: Imelda Bernardo MD 09/19/19 0909 [id number]. Marcell Bernardo MD /nt
== END ==
LOC: M.PC 05:47
DX: M54.16 Radiculopathy, lumbar region (principal); G89.29 Other chronic pain; I10 Essential (primary) hypertension; F32.9 Major depressive disorder, single episode, unspecified; Z79.891 Long term (current) use of opiate analgesic

== ENCOUNTER → 2019-11-27 | Outpatient (CLI) | payer MEDICARE ==
[~2019-11-27] MED LIST changes: +NARCAN4 MG NARES
--- NOTE | ~2019-11-27 | PAINCON ---
[facility] [address] [place] [address] PAIN MANAGEMENT CONSULTATION Name: CAROL NESBITT Virgilio Room: [facility]#: [id number] Admission: 11/27/19 Attend Phys: Imelda Bernardo MD Discharge: Date of : 62 Report #: [id number] THIS REPORT FOR: //name// CC: Gareth Bernardo DATE OF SERVICE: 11/27/2019 CHIEF COMPLAINT: Still having difficulty reading after the stroke. HISTORY: The patient is a 59-year-old gentleman who has been followed in the pain clinic. As you may recall, he had a right hemispheric stroke. As a result of that, he continues to have difficulty with his vision. He is unable to engage in lots of activities that he would like to because of his disability. 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 He is somewhat tired of visiting medical doctor. He has become satisfied with living his life with his current disabilities. He elects not to go and see an retail leasing agent. He does follow up with his psychiatrist about every 6 months. He is still frustrated. He is unable to drive a car. CURRENT MEDICATIONS: Amlodipine 10 mg, Lipitor 20 mg, clonidine 0.2 mg, doxepin 10 mg, Dilaudid t.i.d. 4 mg q.4h., Keppra 500 mg b.i.d., lisinopril 20 mg, methadone 10 mg, Remeron 45 mg, Paxil 10 mg, Seroquel 50 mg, Flomax 0.4 mg. ALLERGIES: No known drug allergies. PAIN CLINIC ASSESSMENT AND PQRS: 1. The patient has some osteoarthritic changes involving his right knee. He has had back surgery. He has undergone right knee replacement. He is not being treated for rheumatoid arthritis. 2. Height 6 feet 0 inches, weight 300 pounds, BMI is 40. 3. Vital Signs: Blood pressure 154/90, heart rate 84, respiratory rate 16, room air saturation 94%, temperature 98.2. 4. Pain intensity 5/10. 5. Fall history: The patient has not fallen in the last 3 months. 6. Blood thinner: The patient is not on a blood thinning medication. 7. Hypertension: The patient is being treated for hypertension. 8. Opioids greater than 6 weeks: The patient receives medication from one source, the pain clinic. 9. Risk assessment tool: Low for opioid use. 10. Functional assessment tool: The patient denies use of recreational drugs. 11. Tobacco: The patient does smoke. He is not vaping. 12. Alcohol: The patient denies use of alcoholic beverages. PHYSICAL EXAMINATION: [place] [address] PAIN MANAGEMENT CONSULTATION Name: CAROL NESBITT Room: [facility]#: [id number] Admission: 11/27/19 Attend Phys: Imelda Bernardo MD Discharge: Date of : 62 Report #: [id number] GENERAL: The patient is a well-developed, well-nourished white male. He appears his stated age. He is somewhat flat. He is unaccompanied. HEENT: Normocephalic, no new trauma. Extraocular muscles intact. Sclerae are nonicteric. The patient has problems with double vision. Does have a closure of his right side of his skull. Loss of visual acuity on the left side. NECK: Without adenopathy or JVD. LUNGS: Clear to auscultation without rhonchi or rales. ABDOMEN: Nontender, slightly protuberant. EXTREMITIES: Upper extremity muscle strength judged to be 5/5 for the major muscle groups in the upper extremities. The patient is without significant scoliosis, kyphosis or lordosis. Gait is generally unremarkable, but there is a slight limp noted. Muscle strength in the lower extremities evaluated as 5/5. IMPRESSION: 1. Status post right hemispheric stroke with some resolution. 2. History of asymmetric lumbar radicular pain status post decompressive lumbar laminectomy in 2007 and 2008 and 1989. 3. Sacroiliac joint dysfunction history. 4. Chronic pain. 5. Hypertension. 6. Chronic insomnia. 7. Chronic anxiety/depression. 8. Status post right knee arthroplasty in 2009, bilateral spinal fusion in 2007. RECOMMENDATIONS: We discussed treatment options with the patient. At this juncture, he feels his medications are helpful. He feels that he has plateaued in his recovery. He feels that he is "as good as I am going to get." He is not interested in continuing to follow up with physicians. 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 He would like to have his medications renewed. He does see a psychiatrist. A script for tizanidine 4 mg one p.o. t.i.d., hydromorphone 4 mg one p.o. up to 5 times daily, methadone 10 mg one p.o. t.i.d. has been written. The patient will call us if he has any concerns. We would like to thank you for letting us participate in his care. We hope he continues to improve. By: [id number]. MD yolie Lewis
== END ==
LOC: M.PC 04:26
DX: I63.9 Cerebral infarction, unspecified (principal); G89.29 Other chronic pain; I10 Essential (primary) hypertension; F41.9 Anxiety disorder, unspecified; F32.9 Major depressive disorder, single episode, unspecified

== ENCOUNTER → 2020-01-15 | Outpatient (CLI) | payer MEDICARE | LOC: M.CT 13:20 | DX: S06.5X9A Traumatic subdural hemorrhage with loss of consciousness of unspecified duration, initial encounter (principal); X58.XXXA Exposure to other specified factors, initial encounter; Y93.89 Activity, other specified; Y92.89 Other specified places as the place of occurrence of the external cause; Y99.8 Other external cause status ==

== ENCOUNTER → 2020-01-31 | Outpatient (CLI) | payer MEDICARE | LOC: M.CT 09:51 | DX: S06.5X9A Traumatic subdural hemorrhage with loss of consciousness of unspecified duration, initial encounter (principal); X58.XXXA Exposure to other specified factors, initial encounter; Y93.89 Activity, other specified; Y92.89 Other specified places as the place of occurrence of the external cause; Y99.8 Other external cause status ==

== ENCOUNTER → 2020-02-19 | Outpatient (CLI) | payer MEDICARE ==
--- NOTE | 2020-02-27 08:25 | PAINCON ---
[address] [address] PAIN MANAGEMENT CONSULTATION Name: CAROL NESBITT Room: [facility]#: [id number] Admission: 02/19/20 Attend Phys: Imelda Bernardo MD Discharge: Date of : 62 Report #: [id number] THIS REPORT FOR: //name// cc: Gareth Chiang MD, David L. MD ~ THIS REPORT FOR: //name// CC: Gareth Bernardo DATE OF SERVICE: 02/19/2020 CHIEF COMPLAINT: Back and knee pain. HISTORY: The patient is a 59-year-old gentleman who has been followed in the pain clinic. As you recall, he suffers from chronic back pain. He also has been experiencing some pain in his left knee. He rates his pain as a 5/10. He did walk for a prolonged period day before. He feels that his medications are still working. He is about 50% improved. He is anxious because of the COVID-19 infection story. He feels that his medications are beneficial and would like to continue their use. Walking, sitting, standing, climbing stairs, lying and bending can exacerbate his discomfort. CURRENT MEDICATIONS: Amlodipine 10 mg, Lipitor 20 mg, clonidine 0.2 mg, doxepin 10 mg, Dilaudid t.i.d. 4 mg, Keppra 500 mg b.i.d., lisinopril 20 mg, methadone 10 mg, Remeron 45 mg, Paxil 10 mg, Seroquel 50 mg, Flomax 0.4 mg. ALLERGIES: No known drug allergies. PAIN CLINIC ASSESSMENT AND PQRS: 1. The patient does have some osteoarthritic changes involving his right knee. He has had back surgery. He has undergone right knee replacement. He is not being treated for rheumatoid arthritis. 2. Height 6 feet 0, weight 310 pounds, BMI is 40.0. 3. Vital Signs: Blood pressure 150/77, heart rate 86, respiratory rate 16, room air saturation is 94, temperature 97.7. 4. Pain intensity 5/10. 5. Fall history: The patient has not fallen in the last 3 months. 6. Blood thinner. The patient is not on a blood thinning medication. 7. Hypertension. The patient is being treated for hypertension. 8. Opioids greater than 6 weeks. The patient receives medication from one source. 9. Risk assessment tool, low for opioid use. 10. Functional assessment tool. The patient denies use of recreational drugs. 11. Tobacco: The patient does smoke. He [place] [address] PAIN MANAGEMENT CONSULTATION Name: CAROL NESBITT Room: [facility]#: [id number] Admission: 02/19/20 Attend Phys: Imelda Bernardo MD Discharge: Date of : 62 Report #: [id number] 12. Alcohol. The patient denies use of alcoholic beverages. PHYSICAL EXAMINATION: GENERAL: The patient is a well-developed, well-nourished white male. Appears his stated age. He is alert and oriented x 3. He is accompanied by his . He does seem somewhat apprehensive and nervous secondary to the COVID-19 virus. NECK: Without adenopathy or JVD. LUNGS: Clear to auscultation without rhonchi or rales. ABDOMEN: Nontender. MUSCULOSKELETAL: Upper extremity muscle strength judged to be 5-/5 for the major muscle groups in the upper extremity. The patient is without significant scoliosis, kyphosis or lordosis. Gait is generally unremarkable. The patient walks with a slight limp. Muscles in the lower extremity strength 5/5. IMPRESSION: 1. Status post right hemispheric stroke with resolution. 2. History of asymmetric lumbar radicular pain status post decompressive lumbar laminectomy 2007, 2008, 1989. 3. Sacroiliac joint dysfunction history. 4. Chronic back pain. 5. Hypertension. 6. Chronic insomnia. 7. Chronic anxiety/depression. 8. Status post right knee arthroplasty, 2009. 9. Bilateral spinal fusion, 2007. RECOMMENDATIONS: We discussed treatment options with the patient. At this juncture, he feels medications are helpful. There are about 50% improvement with their use. He would like to continue with the medications. He is quite nervous regarding the COVID-19 virus which is rising in the area. He would like to continue with his medications. A script for his medications of methadone 10 mg 1 p.o. t.i.d. has been provided. The patient will also use the Dilaudid 4 mg one p.o. q.4 hours p.r.n. for pain control. He will call us if he has any concerns. Hopefully, he will start to feel more relaxed as the COVID-19 epidemic starts to subside. We would like to thank you for letting us participate in his care. <ELECTRONICALLY SIGNED> By: Imelda Bernardo MD 02/27/20 0825 [id number]. Marcell Bernardo MD /nt
== END ==
LOC: M.PC 04:20
DX: M54.5 Low back pain (principal); M25.561 Pain in right knee; M25.562 Pain in left knee; I10 Essential (primary) hypertension; F41.9 Anxiety disorder, unspecified; F32.9 Major depressive disorder, single episode, unspecified

== ENCOUNTER → 2020-05-13 | Outpatient (CLI) | payer MEDICARE ==
--- NOTE | 2020-05-14 08:41 | PAINCON ---
[address] [address] PAIN MANAGEMENT CONSULTATION Name: CAROL NESBITT Virgilio Room: [facility]#: [id number] Admission: 05/13/20 Attend Phys: Imelda Bernardo MD Discharge: Date of : 62 Report #: [id number] THIS REPORT FOR: //name// cc: Gareth Chiang MD, David L. MD ~ THIS REPORT FOR: //name// CC: Gareth Bernardo DATE OF SERVICE: 05/13/2020 CHIEF COMPLAINT: "Here for pain medications, I am still having pain in my knee." HISTORY: The patient is a 59-year-old gentleman who has been followed in the pain clinic because of chronic back pain. He also has pain in his left knee. He rates his pain today as 5/10. He is somewhat saddened by the loss of his father. He in February. He said his father fell and broke his hip. He underwent surgery. His health continued to decline. He had somewhat of an easy . The patient is happy that he did not suffer much. He is still saddened at the loss of his father. Notes that pain continues to be problematic and activities such as walking, sitting, standing, climbing stairs, bending and lifting all exacerbate his discomfort. His left knee is quite painful. He needs a left knee replacement. At this juncture, he is quite concerned about the COVID-19 pandemic. He wants to continue with a conservative approach and would like to continue with his medications. ALLERGIES: No known drug allergies. CURRENT MEDICATIONS: Amlodipine 10 mg, Lipitor 20 mg, clonidine 0.2 mg, doxepin 10 mg, Dilaudid t.i.d. 4 mg, Keppra 500 mg b.i.d., lisinopril 20 mg, methadone 10 mg, Remeron 45 mg, Paxil 10 mg, Seroquel 50 mg, Flomax 0.4 mg. PAIN CLINIC ASSESSMENT AND PQRS: 1. The patient does have some osteoarthritic changes involving his right knee. He has had back surgery. He has undergone a right knee replacement. He is not being treated for rheumatoid arthritis. 2. Height 6 feet 0 inches, weight 302 pounds, BMI is 41.3. 3. Vital signs: Blood pressure 148/87, heart rate 91, respiratory rate 16, room air saturation is 93%, temperature 98.5. 4. Pain intensity 5/10. 5. Fall history: The patient has not fallen since we saw him last. 6. Blood thinner. The patient is not on a blood thinning medication. 7. Hypertension. The patient is being treated for hypertension. 8. Opioids greater than 6 weeks. The [place] [address] PAIN MANAGEMENT CONSULTATION Name: CAROL NESBITT Room: [facility]#: [id number] Admission: 05/13/20 Attend Phys: Imelda Bernardo MD Discharge: Date of : 62 Report #: [id number] clinic. 9. Risk assessment tool, low for opioid use. 10. Functional assessment tool. The patient denies use of recreational drugs. 11. Tobacco: The patient does smoke. 12. Alcohol. The patient denies use of alcoholic beverages. PHYSICAL EXAMINATION: GENERAL: The patient is a well-developed, well-nourished white male. Appears his stated age. He is alert and oriented x 3. His affect is appropriate. He is unaccompanied. He is nervous and somewhat apprehensive secondary to the COVID-19 virus. NECK: Without adenopathy or JVD. HEENT: The patient has a plate on the right side of his head, which has closed the area, which was surgerized. His cranium has been closed for quite some time. It has healed up well. ABDOMEN: Nontender. MUSCULOSKELETAL: The patient complains of pain and discomfort involving the left knee. The patient without significant scoliosis, kyphosis or lordosis. The patient's gait is generally unremarkable, but he does walk with a slight limp. Upper extremity muscle strength judged to be 5/5 for the major muscle groups in the upper extremity. IMPRESSION: 1. Status post right hemispheric stroke with resolution. 2. History of asymmetric lumbar pain, status post decompressive laminectomy, 2007, 2008, 1989. 3. Sacroiliac joint dysfunction history. 4. Chronic back pain. 5. Hypertension. 6. Chronic insomnia. 7. Chronic anxiety/depression. 8. Depression regarding the loss of his father in 02/2020. 9. Status post right knee arthroplasty, 2009. 10. Bilateral spinal fusion, 2007. RECOMMENDATIONS: We discussed treatment options with the patient. At this juncture, he would like to continue with his medications. He feels that the methadone medication is helpful. A script for his methadone has been written. He will also continue with hydromorphone, Dilaudid 4 mg 1 p.o. q. 4 hours, total 150 tablets per month. The methadone will continue at 10 mg 1 p.o. q. 8 hours. He will also use tizanidine to help with muscle spasms. He has been provided Narcan spray for emergency situations. His scripts have been sent to [facility] in [place]. He will call us if [place] [address] PAIN MANAGEMENT CONSULTATION Name: CAROL NESBITT Room: [facility]#: [id number] Admission: 05/13/20 Attend Phys: Imelda Bernardo MD Discharge: Date of : 62 Report #: [id number] We would like to thank you for letting us participate in his care. We hope he continues to improve. <ELECTRONICALLY SIGNED> By: Imelda Bernardo MD 05/14/20 0841 [id number] [id number]. Marcell Bernardo MD /PMT
== END ==
LOC: M.PC 03:54
PROVIDERS: ATTEND Anesthesiology Pain Medicine
DX: M54.5 Low back pain (principal); I10 Essential (primary) hypertension; G47.00 Insomnia, unspecified; F41.8 Other specified anxiety disorders; M96.1 Postlaminectomy syndrome, not elsewhere classified; F11.20 Opioid dependence, uncomplicated; Z79.899 Other long term (current) drug therapy; Z86.73 Personal history of transient ischemic attack (TIA), and cerebral infarction without residual deficits; Z87.39 Personal history of other diseases of the musculoskeletal system and connective tissue; Z86.69 Personal history of other diseases of the nervous system and sense organs; Z96.651 Presence of right artificial knee joint

== ENCOUNTER → 2020-08-05 | Outpatient (CLI) | payer MEDICARE ==
--- NOTE | 2020-08-05 15:40 | PAINCON ---
[address] [address] PAIN MANAGEMENT CONSULTATION Name: CAROL NESBITT Room: [facility]#: [id number] Admission: 08/05/20 Attend Phys: Imelda Bernardo MD Discharge: Date of : 62 Report #: [id number] THIS REPORT FOR: //name// cc: ALO Michaud family physician/PCP ALO - No family physician/PCP ~ THIS REPORT FOR: //name// CC: Gareth Chiang MD [facility] physician/PCP Imelda Bernardo DATE OF SERVICE: 08/05/2020 CHIEF COMPLAINT: I got my vision back and I am not seeing double anymore. HISTORY: The patient is a 59-year-old gentleman who has been followed in the pain clinic. As you may recall, he has had some problems with his vision. He had stroke in the past. He has had surgery. Since that time, he has had double vision. He states that he fell and hit his head against a locker. His vision improved and he is no longer seeing double. He is much happier at this juncture. 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 He is accompanied by his daughter. He is quite a bit happier now that things seem to be normalized somewhat. He is still concerned regarding the COVID-19 problem. He would like to have his medications renewed. ALLERGIES: No known drug allergies. CURRENT MEDICATIONS: Amlodipine 10 mg, Lipitor 20 mg, clonidine 0.2 mg, doxepin 10 mg, Dilaudid, Keppra 500 mg b.i.d., lisinopril 20 mg, methadone 10 mg, Remeron 45 mg, Paxil 10 mg, Seroquel 50 mg, and Flomax 0.4 mg. PAIN CLINIC ASSESSMENT AND PQRS: 1. The patient does have some arthritic changes in his right knee. He has had back surgery. He has undergone right knee replacement. He is not being treated for rheumatoid arthritis. 2. Height 6 feet 0, weight 301 pounds, BMI is 41. 3. Vital Signs: Blood pressure 150/79, heart rate 79, respiratory rate 16, room air saturation 96%, temperature 96.4. 4. Pain intensity 10. 5. Fall history: The patient has not fallen, but did tumbled his head on the locker. This improved his vision afterwards from double vision to binocular. 6. Blood thinner. The patient is not on a blood thinning medication. 7. Hypertension. The patient is being treated for hypertension. 8. Opioids greater than 6 weeks. The patient receives medication from the pain clinic. 9. Functional [place] [address] PAIN MANAGEMENT CONSULTATION Name: CAROL NESBITT Room: [facility]#: [id number] Admission: 08/05/20 Attend Phys: Imelda Bernardo MD Discharge: Date of : 62 Report #: [id number] 10. Recreational drug use. The patient denies. 11. Tobacco: The patient does smoke. 12. Alcohol. The patient denies use of alcoholic beverages. PHYSICAL EXAMINATION: GENERAL: The patient is a well-developed, well-nourished white male. Appears his stated age. He is alert and oriented x 3. His affect is appropriate. Speech is fluent. HEENT: Normocephalic, atraumatic. Extraocular eye muscles intact. Sclerae nonicteric. The patient states that he no longer has double vision, but has single/binocular vision. The patient is wearing a mask. 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 HEART: Regular rate. ABDOMEN: Nontender. MUSCULOSKELETAL: The patient has some complaints of pain involving his left knee. He is without significant scoliosis, kyphosis or lordosis. Gait appears unremarkable. Has a slight limp. Upper extremity muscle strength judged to be 5/5 for the major muscle groups in the upper extremity. IMPRESSION: 1. Status post right hemispheric stroke with resolution. 2. History of asymmetric lumbar pain, status post decompressive laminectomy in 2007, 2008, 1989. 3. Sacroiliac joint dysfunction history. 4. Chronic back pain. 5. Hypertension. 6. Chronic insomnia. 7. Chronic anxiety/depression. 8. Depression regarding the loss of his father on 02/2020. 9. Status post right knee arthroplasty in 2009. 10. Bilateral spinal fusion, 2007. RECOMMENDATIONS: The patient is much more upbeat today. His diplopia/double vision has resolved. He is in a much better mental state. He is excited about going today to the [employer] to take his test to resume driving of a vehicle. A script for his medications has been renewed. He will continue with hydromorphone 4 mg 150 tablets per month. He will also continue with methadone 10 mg 1 p.o. t.i.d. The patient will also use tizanidine as a muscle relaxant p.r.n. He has been given in the past Narcan nasal spray should he need it. [facility] [address] [place] [address] PAIN MANAGEMENT CONSULTATION Name: CAROL NESBITT Room: [facility]#: [id number] Admission: 08/05/20 Attend Phys: Imelda Bernardo MD Discharge: Date of : 62 Report #: [id number] We would like to thank you for letting us participate in his care. We hope he continues to improve. <ELECTRONICALLY SIGNED> By: Imelda Bernardo MD 08/05/20 1540 0905 [id number]. Marcell Bernardo MD /[facility]
== END ==
LOC: M.PC 08:23
PROVIDERS: ATTEND Anesthesiology Pain Medicine
DX: H53.8 Other visual disturbances (principal); I63.9 Cerebral infarction, unspecified; M54.5 Low back pain; G89.29 Other chronic pain; I10 Essential (primary) hypertension; G47.00 Insomnia, unspecified; F41.8 Other specified anxiety disorders; Z96.651 Presence of right artificial knee joint; Z98.1 Arthrodesis status; Z87.39 Personal history of other diseases of the musculoskeletal system and connective tissue; Z79.899 Other long term (current) drug therapy

== ENCOUNTER → 2020-09-04 | Outpatient (CLI) | payer MEDICARE ==
--- NOTE | 2020-09-09 14:22 | PAINCON ---
[address] [address] PAIN MANAGEMENT CONSULTATION Name: CAROL NESBITT Room: [facility]#: [id number] Admission: 09/04/20 Attend Phys: Imelda Bernardo MD Discharge: Date of : 62 Report #: [id number] THIS REPORT FOR: //name// cc: NO FAMILY PHYSICIAN or PCP NO FAMILY PHYSICIAN or PCP ~ THIS REPORT FOR: //name// CC: Gareth Bernardo NO PCP DATE OF SERVICE: 09/04/2020 CHIEF COMPLAINT: Left knee pain. HISTORY: The patient is a 59-year-old gentleman who has been followed in the pain clinic. As you may recall, he has had a stroke. He suffered some visual problems with diplopia that has resolved. He is now able to drive his car. He has gotten his license. They have been renewed. He is interested in losing weight. He has had a right knee replacement. Left knee is more problematic. He is unable to engage in any meaningful activities because of the pain and discomfort associated with his knee. He states there is [id number] involvement. He saw his orthopedic doctor who at this juncture feels that a conservative approach would be reasonable. Because of the stroke and other problems that the patient has, he feels that trying a series of knee injections might be more beneficial and less hazardous. The patient continues to be sheltering at home because of COVID-19. He would like to consider injections into the left knee. ALLERGIES: No known drug allergies. CURRENT MEDICATIONS: Amlodipine 10 mg, Lipitor 20 mg, clonidine 0.2 mg, doxepin 10 mg, Dilaudid, Keppra 500 mg b.i.d., lisinopril 20 mg, methadone 10 mg t.i.d., Remeron or 45 mg, Paxil 10 mg, Seroquel 50 mg, and Flomax 0.4 mg. PAIN CLINIC ASSESSMENT AND PQRS: 1. The patient has some pain and discomfort in the left knee. He also has back pain. He has had a right knee replacement. The patient is not being treated for rheumatoid arthritis. 2. Height 6 feet 0, weight 295 pounds, BMI is 40. 3. Vital Signs: Blood pressure 147/83, heart rate 70, respiratory rate 16, room air saturation 98%, temperature 97 degrees. 4. Pain intensity 5/10. 5. Fall history: The patient has not fallen since we saw him last. 6. Blood thinner. The patient is not on a blood thinning medication. 7. Hypertension. The patient is [place] [address] PAIN MANAGEMENT CONSULTATION Name: CAROL NESBITT Room: [facility]#: [id number] Admission: 09/04/20 Attend Phys: Imelda Bernardo MD Discharge: Date of : 62 Report #: [id number] 8. Opioids greater than 6 weeks. The patient receives medication from [facility], pain clinic. 9. Risk assessment tool reviewed. 10. Recreational drug use. The patient denies. 11. Tobacco: The patient does smoke. RECOMMENDATIONS: We discussed treatment options with the patient. The patient has pain and discomfort involving the left knee. Movement in and out cause some discomfort. There is some feelings of grinding with move, passive movement of the patient's knee. We discussed the risks and benefits of the procedure, which could include infection, worsening of pain, no improvement in pain, nerve damage, bleeding, and the patient elects to proceed. PROCEDURE NOTE: The patient was taken to the procedure area. He was then assisted in getting on the examination table. His left knee was then sterilely prepped with a chlorhexidine solution and allowed to dry. A second chlorhexidine solution was applied and allowed to dry. The left lateral knee area was palpated. The patella was moved freely. At the superior area of the patella, a line dropped perpendicular from the patella to the lateral side of the leg was palpated. In the soft area, the appropriate area was noted. A spray stream of ethyl was used to anesthetize the area with its refrigerant properties. A 25-gauge needle was then advanced into the area of the knee under the patella. Aspiration fluid was negative. A total of 40 mg triamcinolone with 4 mL of 1% lidocaine. Aspiration was easy. There was no evidence of resistance or injection into the tendon. The patient tolerated the procedure well. He remained in the pain clinic for an appropriate amount of time. He will follow up in the future as needed. We would like to thank you for letting us participate in his care. We hope he continues to improve. <ELECTRONICALLY SIGNED> By: Imelda Bernardo MD 09/09/20 1422 1030 [id number]. Marcell Bernardo MD /sheri
== END | disposition home or self-care (01) ==
LOC: M.PC 09:14
PROVIDERS: ATTEND Anesthesiology Pain Medicine
DX: M25.562 Pain in left knee (principal); I10 Essential (primary) hypertension; F41.9 Anxiety disorder, unspecified; Z79.899 Other long term (current) drug therapy; Z87.891 Personal history of nicotine dependence

== ENCOUNTER → 2021-05-19 | Outpatient (CLI) | payer MEDICARE ==
[~2021-05-19] MED LIST changes: +CALCIUM500 MG PO; +PROBIOTIC1 EAC7 PO; +STOOL SOFTENER1 EACH PO; +SUPER THERAVIT1 EACH PO; +VITAMIN D PO
== END ==
LOC: M.PC 07:43
PROVIDERS: ATTEND Anesthesiology Pain Medicine
DX: I69.351 Hemiplegia and hemiparesis following cerebral infarction affecting right dominant side (principal); M54.5 Low back pain; G89.29 Other chronic pain; I10 Essential (primary) hypertension; F17.200 Nicotine dependence, unspecified, uncomplicated; F41.9 Anxiety disorder, unspecified; F32.9 Major depressive disorder, single episode, unspecified; Z96.651 Presence of right artificial knee joint; Z79.899 Other long term (current) drug therapy; Z79.891 Long term (current) use of opiate analgesic; Z88.1 Allergy status to other antibiotic agents

== ENCOUNTER → 2021-08-11 | Outpatient (CLI) | payer MEDICARE | LOC: M.PC 08:00 | PROVIDERS: ATTEND Anesthesiology Pain Medicine | DX: G89.29 Other chronic pain (principal); M54.5 Low back pain; H53.2 Diplopia; I10 Essential (primary) hypertension; M43.20 Fusion of spine, site unspecified; F41.9 Anxiety disorder, unspecified; F32.9 Major depressive disorder, single episode, unspecified; F51.04 Psychophysiologic insomnia; Z88.8 Allergy status to other drugs, medicaments and biological substances; Z96.651 Presence of right artificial knee joint; Z79.899 Other long term (current) drug therapy ==

== ENCOUNTER → 2021-09-08 | Outpatient (CLI) | payer MEDICARE | LOC: M.PC 07:42 | PROVIDERS: ATTEND Anesthesiology Pain Medicine | DX: G89.29 Other chronic pain (principal); M54.50 Low back pain, unspecified; I10 Essential (primary) hypertension; F51.04 Psychophysiologic insomnia; Z88.8 Allergy status to other drugs, medicaments and biological substances; Z79.899 Other long term (current) drug therapy; Z96.651 Presence of right artificial knee joint ==

== ENCOUNTER → 2021-10-06 | Outpatient (CLI) | payer MEDICARE | LOC: M.PC 08:20 | PROVIDERS: ATTEND Anesthesiology Pain Medicine | DX: G89.29 Other chronic pain (principal); M54.50 Low back pain, unspecified; H53.2 Diplopia; I10 Essential (primary) hypertension; F51.04 Psychophysiologic insomnia; F41.8 Other specified anxiety disorders; Z96.651 Presence of right artificial knee joint; Z86.16 Personal history of COVID-19; Z86.73 Personal history of transient ischemic attack (TIA), and cerebral infarction without residual deficits; Z88.8 Allergy status to other drugs, medicaments and biological substances; Z79.899 Other long term (current) drug therapy ==

== ENCOUNTER → 2021-12-29 | Outpatient (CLI) | payer MEDICARE | LOC: M.PC 08:10 | PROVIDERS: ATTEND Anesthesiology Pain Medicine | DX: G89.29 Other chronic pain (principal); M54.50 Low back pain, unspecified; I10 Essential (primary) hypertension; F51.04 Psychophysiologic insomnia; Z96.651 Presence of right artificial knee joint; F17.200 Nicotine dependence, unspecified, uncomplicated; Z88.8 Allergy status to other drugs, medicaments and biological substances; Z79.899 Other long term (current) drug therapy ==